=== PATIENT | male | born 1965 | race Caucasian/White ===

== ENCOUNTER 2016-07-23 08:29 | Emergency (ER) | payer OTHER ==
[2016-07-23] MEDS ORDERED: HYDROCODONE/ACETAMINOPHEN 5-325 MG TABLET PO ONE (08:43)
[2016-07-23] MEDS ORDERED: IBUPROFEN 800 MG TABLET PO ONE (08:54)
--- NOTE | 2016-07-23 09:31 | RADIOLOGY REPORT (SQ) ---
EXAM DESCRIPTION: ANKLE LEFT COMPLETE COMPLETED DATE/TIME: 07/23/2016 9:01 am REASON FOR STUDY: ankle injury COMPARISON: None. NUMBER OF VIEWS: Three views left ankle. LIMITATIONS: Fairly extensively limiting external artifacts. FINDINGS: Normal bone density. Mortise maintained. No suggestion of large ankle joint effusion. M ild anterior tibiotalar spurring. No talar dome lesion. No definable displaced fracture. Small rel atively nondisplaced fractures could still be present given all of the extensive regional artifact. OTHER: No other significant finding. IMPRESSION: Degenerative changes. Considerably limiting external artifact. No large displaced frac ture identified. TECHNICAL DOCUMENTATION: JOB ID: [id number]
--- NOTE | 2016-07-23 10:17 | ER Document Report ---
ED General - General Chief Complaint: Ankle Injury Stated Complaint: ANKLE INJURY Time Seen by Provider: 07/23/16 08:43 Mode of Arrival: Ambulatory Information source: Patient Notes: 50-year-old male presents after large object landed on his left ankle just prior to arrival. Patient notes he was able to ambulate, pain has improved since it initially occurred. Patient denies any other injuries present - HPI Onset: Just prior to arrival Onset/Duration: Sudden Quality of pain: Achy Severity: Mild Pain Level: 1 Associated symptoms: Body/muscle aches Exacerbated by: Movement Relieved by: Denies Similar symptoms previously: Yes Recently seen / treated by doctor: No Past Medical History - Social History Smoking Status: Never Smoker Cigarette use (# per day): No Chew tobacco use (# tins/day): No Smoking Education Provided: No Family History: Reviewed & Not Pertinent - Past Medical History Cardiac Medical History: Reports: Hx Hypertension Surgical Hx: Negative Review of Systems - Review of Systems Notes: PHYSICAL EXAMINATION: GENERAL: Well-appearing, well-nourished and in no acute distress. HEAD: Atraumatic, normocephalic. EYES: Pupils equal round and reactive to light, extraocular movements intact, sclera anicteric, conjunctiva are normal. ENT: Nares patent, oropharynx clear without exudates. Moist mucous membranes. NECK: Normal range of motion, supple without lymphadenopathy LUNGS: Breath sounds clear to auscultation bilaterally and equal. No wheezes rales or rhonchi. HEART: Regular rate and rhythm without murmurs ABDOMEN: Soft, nontender, nondistended abdomen. No guarding, no rebound. No masses appreciated. Musculoskeletal: Left foot and splint, removed pulses intact mild swelling noted NEUROLOGICAL: Cranial nerves grossly intact. Normal speech, normal gait. Normal sensory, motor exams PSYCH: Normal mood, normal affect. SKIN: Warm, Dry, normal turgor, no rashes or lesions noted. Physical Exam - Vital signs Vitals: Temp Pulse Resp BP Pulse Ox 97.4 F 105 H 18 127/69 H 95 07/23/16 08:30 07/23/16 08:30 07/23/16 08:30 07/23/16 08:30 07/23/16 08:30 Course - Re-evaluation Re-evalutation: 07/23/16 11:12 X-ray noted no acute abnormality. Patient will be given crutches follow-up with orthopedics in 1 week After performing a Medical Screening Examination, I estimate there is LOW risk for INTRACRANIAL HEMORRHAGE, UNSTABLE SPINE FRACTURE, CENTRAL CORD SYNDROME, CAUDA EQUINA, THORACIC AORTIC DISSECTION, PNEUMOTHORAX, PERFORATED BOWEL, RUPTURED ABDOMINAL AORTIC ANEURYSM, ACUTE TENDON RUPTURE, COMPARTMENT SYNDROME, or OPEN FRACTURE, thus I consider the discharge disposition reasonable. Also, there is no evidence or peritonitis, sepsis, or toxicity. I have reevaluated this patient multiple times and no significant life threatening changes are noted. The patient and I have discussed the diagnosis and risks, and we agree with discharging home to follow-up with their primary doctor with the understanding that symptoms and presentations can change. We also discussed returning to the Emergency Department immediately if new or worsening symptoms occur. We have discussed the symptoms which are most concerning (e.g., bloody stool, fever, changing or worsening pain, vomiting) that necessitate immediate return. - Vital Signs Vital signs: Temp Pulse Resp BP Pulse Ox 98.0 F 104 H 16 130/82 H 95 07/23/16 10:32 07/23/16 10:32 07/23/16 10:32 07/23/16 10:32 07/23/16 10:32 - Diagnostic Test Radiology reviewed: Image reviewed, Reports reviewed - No acute abnormality Discharge - Discharge Clinical Impression: Left foot pain Ankle injury Qualifiers: Encounter type: initial encounter Laterality: left Qualified Code(s): S99.912A - Unspecified injury of left ankle, initial encounter Condition: Stable Disposition: HOME, SELF-CARE Instructions: Sprained Ankle ([facility]) Prescriptions: Ibuprofen [Motrin 800 mg Tablet] 800 mg PO Q8H PRN #30 tab PRN Reason: Forms: Return to Work Referrals: LAVELLE REGALADO DO [ACTIVE STAFF] - Follow up in 3-5 days
[2016-07-23 10:46] VITALS: BP 130/82
== END 2016-07-23 10:35 | disposition home or self-care (01) ==
LOC: ER 08:29
DX: S99.912A Unspecified injury of left ankle, initial encounter (principal); M79.672 Pain in left foot; W20.8XXA Other cause of strike by thrown, projected or falling object, initial encounter; Y93.89 Activity, other specified; Y99.0 Civilian activity done for income or pay; I10 Essential (primary) hypertension
CPT/HCPCS: 99283